=== PATIENT | male | born 1950 | race Caucasian/White ===

== ENCOUNTER 2016-08-05 10:51 | Day surgery (SDC) | payer OTHER ==
[2016-08-05] VITALS (15 sets, daily range): BP systolic 92–175; BP diastolic 55–83; PULSE 66–94; RESP 11–20; TEMP 97.1–98.3; O2SAT 95–100; Ht 177.8 cm; Wt 81.1 kg
[~2016-08-05] VITALS: Ht 177.8 cm; Wt 81.1 kg
[~2016-08-05 10:51] MED LIST: LEVOFLOXACIN 500 mg IVPB 500 MG in D5W 100 ML IV ONE; LIDOCAINE 1% (10mg/ml) 2ml SDV INJ ONE; LR 1,000 ML IV SCH
--- OUTSIDE RECORDS SUMMARY | 2016-08-05 10:56 | XMS REPORT | Summary of Care ---
Author Author Michael Albarado M.D. Organization Unknown Address [address], [place] [id number] Phone Unavailable Care Team Providers Care Power Nut Runner Operator Name Role Phone Michael Albarado PP Unavailable Unavailable Unavailable Functional Status Functional Status Health Issues* Name Dates Details Functional status health issues are not documented Status: Cognitive Status Health Issues* Name Dates Details Cognitive status health issues are not documented Status: Problems Name Dates Details Acute sinusitis (461.9, J01.90) Status: Active Encounter for general health examination (V70.0, Z00.00) Status: Active Routine history and physical examination of adult (V70.0, Z00.00) Status: Active Hyperlipidemia (272.4, E78.5) Status: Active Sore throat (462, J02.9) Status: Active Corneal foreign body (930.0, T15.00XA) Status: Active Cornea abrasion (918.1, S05.00XA) Status: Active Corneal erosion, 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, 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 Hemorrhoids (455.6, K64.9) Status: Active SOB (shortness of breath) (786.05, R06.02) Status: Active Sinus tachycardia (427.89, I47.1) Status: Active Medications Name Dates Details Medication not documented Allergies and Adverse Reactions Name Dates Details No Known Drug Allergies Status: Active Procedures Procedure Dates Details History of Complete Colonoscopy Completed:12-Jul-2009 ECG/ EKG Ordered:19-May-2014 Immunization Name Dates Details Tdap (Adacel) Lot #: [id number] Administered on:28-Apr-2013 Prevnar 13 Intramuscular Suspension Administered on:28-Apr-2013 Family History Unknown Family Member* Name Dates Details Family history of Mother At Age ____ Comments: Family History Status: Active Family history of Father At Age ____ Comments: Family History Status: Active Father* Name Dates Details Family history of Gastric Cancer (V16.0) Status: Active Social History Name Dates Details Smoking Status* Never smoker Vital Signs Date Test Result Details 19-May-2014 14:17 BP Systolic 160 mm[Hg] Status: BP Diastolic 68 mm[Hg] Status: Heart Rate 116 /min Status: Weight 187 lb Status: O2 SAT 99 % Status: Body Mass Index Calculated 26.83 kg/m2 Status: Body Surface Area Calculated 2.03 m2 Status: Results Date Description Value Details 18-May-2014 11:20 CBC w/ Auto Diff 7150 WBC 7.8 K/uL (Better) Range: 4.5-11.0 RBC 5.31 mil/uL (Better) Range: 4.20-5.40 HGB 15.9 g/dL (Better) Range: 14.0-18.0 HCT 46.0 % (Better) Range: 42.0-53.0 MCV 86.5 fL (Better) Range: 80.0-99.0 MCH 29.9 pg (Better) Range: 27.3-32.5 MCHC 34.5 % (Better) Range: 32.0-36.0 RDW 12.7 % (Better) Range: 11.6-14.8 PLATELETS 163 K/uL (Better) Range: 150-400 MPV 9.6 fL (Better) Range: 6.0-11.0 %NEUTRO 62.2 % (Better) Range: 37.0-80.0 %LYMPHS 24.5 % (Better) Range: 13.0-50.0 %MONO 7.2 % (Better) Range: 0.0-12.0 %EOS 1.7 % (Better) Range: 0.0-7.0 %BASO 0.6 % (Better) Range: 0.0-2.5 %BRISSA 3.9 % (Better) Range: 0.0-5.0 NEUTRO 4.8 K/uL (Better) Range: 2.0-6.9 LYMPHS 1.9 K/uL (Better) Range: 0.6-3.4 MONOS 0.6 K/uL (Better) Range: 0.0-0.9 EOS 0.1 K/uL (Better) Range: 0.0-0.7 BASO 0.0 K/uL (Better) Range: 0.0-0.2 11:31 Comprehensive Metabolic Panel 1212 SODIUM 139 mmol/L (Better) Range: 133-144 POTASSIUM 4.1 mmol/L (Better) Range: 3.5-5.1 CHLORIDE 105 mmol/L (Better) Range: 98-110 CARBON DIOXIDE 26.5 mmol/L (Better) Range: 23.0-33.0 ANION GAP 8 mmol/L (Better) Range: 6-16 BUN 14 mg/dL (Better) Range: 7-18 CREATININE, SERUM 0.86 mg/dL (Better) Range: 0.43-1.13 BUN:CREATININE RATIO 16 (Better) EST GFR, >60 ml/min (Better) Range: >60 EST GFR, NON-AFR [place] >60 ml/min (Better) Range: >60 Comments: EST GFR is reported in ml/min per 1.73 m2 of body surface area. For -Togolese, please multiple result by 1.2.----- GLUCOSE 102 mg/dL (Above high threshold) Range: 70-100 ALK PHOSPHATASE 79 U/L (Better) Range: 46-116 Comments: Please Note: New Reference Range effective 2013.----- TOTAL BILIRUBIN 0.70 mg/dL (Better) Range: 0.20-1.00 AST 23 U/L (Better) Range: 8-35 ALT 40 U/L (Better) Range: 12-78 ALBUMIN 4.0 g/dL (Better) Range: 3.4-5.0 TOTAL PROTEIN 7.4 g/dL (Better) Range: 6.4-8.2 A/G RATIO 1.2 units (Better) Range: 1.0-1.8 CALCIUM 9.2 mg/dL (Better) Range: 8.5-10.1 11:35 PSA ( PROSTATE SPECIFIC ANTIGEN) 3100 PROSTATE SPECIFIC ANTIGEN 1.300 ng/mL (Better) Range: 0.000-4.000 Plan of Care Planned Observations* Name Dates Details Planned Goals not documented Goal Instructions * Instructions not documented Encounters Appointment; Michael Albarado Encounter Diagnosis: Problem not documented On 19-May-2014 14:15 Appointment; Carlos Hart Encounter Diagnosis: Problem not documented On 27-Jun-2013 13:00 Appointment; Carlos Hart Encounter Diagnosis: Problem not documented On 20-Jun-2013 11:15 Appointment; Eric Benitez Encounter Diagnosis: Problem not documented On 20-Jun-2013 07:45 Appointment; Pancho Carson Encounter Diagnosis: Problem not documented On 03-Jun-2013 09:30 Appointment; Michael Albarado Encounter Diagnosis: Problem not documented On 28-Apr-2013 10:45 Appointment; Michael Albarado Encounter Diagnosis: Problem not documented On 28-Apr-2013 09:00 Appointment; Michael Albarado Encounter Diagnosis: Problem not documented On 20-Jul-2012 10:15 Appointment; Milton Dickinson Encounter Diagnosis: Problem not documented On 15-Jul-2012 08:00
--- OUTSIDE RECORDS SUMMARY | 2016-08-05 10:56 | XMS REPORT | Summary of Care ---
Author Author Edwin Richards M.D. Unknown Address [address], [place] [id number] Phone Unavailable Care Team Providers Care Blanking Press Operator Name Role Phone Michael Albarado JONH Unavailable Unavailable Unavailable Functional Status Functional Status Health Issues* Name Dates Details Functional status health issues are not documented Status: Cognitive Status Health Issues* Name Dates Details Cognitive status health issues are not documented Status: Problems Name Dates Details Routine history and physical examination of adult (V70.0, Z00.00) Status: Active Hyperlipidemia (272.4, E78.5) Status: Active Microscopic hematuria (599.72, R31.2) Status: Active 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, 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: Active Medications Name Dates Details Medication not documented Allergies and Adverse Reactions Name Dates Details No Known Drug Allergies Status: Active Past Medical History Name Dates Details History of acute sinusitis (V12.69, Z87.09) Status: Resolved History of corneal abrasion (V15.59, Z87.828) Status: Resolved History of Corneal erosion, 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, H16.001) Status: Resolved History of Corneal foreign body (930.0, T15.00XA) Status: Resolved History of Encounter for general health examination (V70.0, Z00.00) Status: Resolved History of hemorrhoids (V13.89, Z87.19) Status: Resolved History of shortness of breath (V13.89, Z87.898) Status: Resolved History of sinus tachycardia (V12.59, Z86.79) Status: Resolved History of Sore throat (462, J02.9) Status: Resolved Procedures Procedure Dates Details History of Complete Colonoscopy Completed:12-Jul-2009 CBC w/ Auto Diff 7150 Ordered:29-May-2015 Comprehensive Metabolic Panel 1212 Ordered:29-May-2015 PSA ( PROSTATE SPECIFIC ANTIGEN) 3100 Ordered:29-May-2015 THYROID STIM. HORMONE 3602 Ordered:29-May-2015 LIPID PROFILE 1184 Ordered:29-May-2015 Immunization Name Dates Details Tdap (Adacel) Lot #: [id number] Administered on:28-Apr-2013 Prevnar 13 Intramuscular Suspension Administered on:28-Apr-2013 Zoster (Zostavax) Lot #: [id number] Administered on:05-Jun-2014 Family History Unknown Family Member* Name Dates Details Family history of Mother At Age ____ Comments: Family History Status: Active Family history of Father At Age ____ Comments: Family History Status: Active Father* Name Dates Details Family history of Gastric Cancer (V16.0) Status: Active Social History Name Dates Details Smoking Status* Never smoker Vital Signs Date Test Result Details No Known Vitals to report Results Date Description Value Details Results not documented Plan of Care Planned Observations* Name Dates Details Planned Goals not documented Goal Planned Encounters* Appointment; Provider: Michael Albarado On 06-Jun-2015 16:00 Instructions * Instructions not documented Encounters Appointment; Edwin Richards Encounter Diagnosis: Problem not documented On 17-Apr-2015 09:30 Appointment; Michael Albarado Encounter Diagnosis: Problem not documented On 05-Jun-2014 09:00 Appointment; Omid Malhotra Encounter Diagnosis: Problem not documented On 31-May-2014 12:30 Appointment; Michael Albarado Encounter Diagnosis: Problem not documented On 19-May-2014 14:15 Appointment; Carlos Hart Encounter Diagnosis: Problem not documented On 27-Jun-2013 13:00 Appointment; Carlos Hart Encounter Diagnosis: Problem not documented On 20-Jun-2013 11:15 Appointment; Eric Benitez Encounter Diagnosis: Problem not documented On 20-Jun-2013 07:45 Appointment; Pancho Carson Encounter Diagnosis: Problem not documented On 03-Jun-2013 09:30
--- OUTSIDE RECORDS SUMMARY | 2016-08-05 10:56 | XMS REPORT | Summary of Care ---
Author Author Michael Albarado M.D. 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 Hemorrhoids (455.6, K64.9) Status: Active Hyperlipidemia (272.4, E78.5) Status: Active Shortness of breath (786.05, R06.02) Status: Active Sinus tachycardia (427.89, I47.1) Status: Active Medications Name Dates Details Medication not documented Allergies and Adverse Reactions Name Dates Details No Known Drug Allergies Status: Active Procedures Procedure Dates Details History of Complete Colonoscopy Completed:12-Jul-2009 Procedures not documented Immunization Name Dates Details Tdap (Adacel) Lot #: [id number] Administered on:28-Apr-2013 Prevnar 13 Intramuscular Suspension Administered on:28-Apr-2013 Zoster (Zostavax) Lot #: [id number] Administered on:05-Jun-2014 Family History Unknown Family Member* Name Dates Details Family history of Mother At Age ____ Comments: Family History Status: Active Family history of Father At Age ____ Comments: Family History Status: Active Father* Name Dates Details Family history of Gastric Cancer (V16.0) Status: Active Social History Name Dates Details Smoking Status* Never smoker Vital Signs Date Test Result Details 05-Jun-2014 08:57 BP Systolic 140 mm[Hg] Status: BP Diastolic 80 mm[Hg] Status: Heart Rate 81 /min Status: O2 SAT 100 % Status: 31-May-2014 12:40 BP Systolic 142 mm[Hg] Status: BP Diastolic 78 mm[Hg] Status: 19-May-2014 14:17 BP Systolic 160 mm[Hg] Status: [...] ml/min (Better) Range: >60 EST GFR, NON-AFR CHAD[place] >60 ml/min (Better) Range: >60 Comments: EST [...] SPECIFIC ANTIGEN 1.300 ng/mL (Better) Range: 0.000-4.000 19-May-2014 14:49 ECG/ EKG CP - Electro CardioGram ECG/ EKG Cardiology Read (Better) Plan of Care Planned Observations* Name Dates [...]
--- OUTSIDE RECORDS SUMMARY | 2016-08-05 10:57 | XMS REPORT ---
Author Author GENERATED, SYSTEM Organization Unknown Address Unknown Phone Unavailable Care Team Providers Care Head Well Puller Name Role Phone MD SURESH, COURT PP [phone] Reason For Visit Chief Complaint ABD PAIN Social History Functional Status Vital Signs Results Chemistry from 08/01/2016 7:44 PMSODIUM 137 MMOL/L (136-145 MMOL/L) POTASSIUM 3.8 MMOL/L (3.5-5.1 MMOL/L) CHLORIDE 103 MMOL/L (98-107 MMOL/L) TCO2 23.9 MMOL/L (21.0-32.0 MMOL/L) *ANION GAP 10.1 MMOL/L (8.0-16.0 MMOL/L) BUN 21 MG/DL H (7-18 MG/DL) CREATININE 1.07 MG/DL (0.70-1.30 MG/DL) *BUN/CREATININE RATIO 19.6 H (9.1-17.0 ) GLUCOSE 163 MG/DL H (65-99 MG/DL) *GFR EST NON AFR KENYAN 72 ML/MIN (Reference Range: not available) *GFR EST AFR AMER 83 ML/MIN (Reference Range: not available) CALCIUM 8.8 MG/DL (8.5-10.1 MG/DL) BILIRUBIN TOTAL 0.40 MG/DL (0.20-1.00 MG/DL) TOTAL PROTEIN 7.1 GM/DL (6.4-8.2 GM/DL) ALBUMIN 3.9 GM/DL (3.4-5.0 GM/DL) *GLOBULIN 3.2 GM/DL (2.3-3.5 GM/DL) *A/G RATIO 1.2 MG/DL L (1.5-2.2 MG/DL) ALK PHOS 82 U/L (46-116 U/L) ALT (SGPT) 28 U/L (14-59 U/L) AST (SGOT) 25 U/L (15-37 U/L) Hematology from 08/01/2016 7:44 PMWBC 10.8 X10e3/UL (3.6-11.2 X10e3/UL) RBC 5.08 X10e6/UL (4.06-5.63 X10e6/UL) HEMOGLOBIN 14.9 G/DL (12.5-16.3 G/DL) HEMATOCRIT 43.1 % (36.7-47.1 %) *MCV 84.9 FL (80.0-100.0 FL) *MCH 29.3 PG (27.0-33.0 PG) *MCHC 34.5 G/DL (32.0-36.0 G/DL) *RDW 13.0 % (12.3-17.0 %) *RDWSD 38.9 (37.1-47.8 ) PLATELET 159 X10e3/UL (159-386 X10e3/UL) *MPV 9.5 FL (7.4-10.4 FL) AUTOMATED DIFF PERFORMED (Reference Range: not available) SEGS 70.9 % (Reference Range: not available) *LYMPHOCYTES 18.4 % (Reference Range: not available) *MONOCYTES 8.9 % (Reference Range: not available) *EOSINOPHILS 1.3 % (Reference Range: not available) *BASOPHILS 0.5 % (Reference Range: not available) *ABSOLUTE NEUTROPHILS 7.70 X10e3/UL (1.80-7.80 X10e3/UL) *ABSOLUTE LYMPHOCYTES 2.00 X10e3/UL (1.00-3.00 X10e3/UL) *ABSOLUTE MONOCYTES 1.00 X10e3/UL (0.30-1.00 X10e3/UL) *ABSOLUTE EOSINOPHILS 0.10 X10e3/UL (0.00-0.50 X10e3/UL) *ABSOLUTE BASOPHILS 0.10 X10e3/UL (0.00-0.20 X10e3/UL) Urinalysis from 08/01/2016 7:44 PM*URINE COLOR YELLOW (STRAW/YELL/DK YELL ) *URINE APPEARANCE CLEAR (CLEAR ) URINE PH 6.5 (5.0-8.0 ) URINE SPECIFIC GRAVITY 1.020 (<=1.005->=1.030 ) *URINE GLUCOSE NEGATIVE MG/DL (NEGATIVE MG/DL) *URINE BILIRUBIN NEGATIVE (NEGATIVE ) *URINE KETONES TRACE MG/DL A (NEGATIVE MG/DL) *URINE BLOOD LARGE A (NEGATIVE ) *URINE PROTEIN TRACE MG/DL A (NEGATIVE MG/DL) *URINE UROBILINOGEN 0.2 EU/DL (0.2-1.0 EU/DL) *URINE NITRITES NEGATIVE (NEGATIVE ) *URINE LEUKOCYTES NEGATIVE (NEGATIVE ) *MICROSCOPIC EXAM PERFORMED PERFORMED (Reference Range: not available) *WBC URINE 1-5 /HPF (0-5 /HPF) *RBC URINE 25-50 /HPF A (0-1 /HPF) *SQUAMOUS EP. CELLS MANY /LPF A (NEG-FEW /LPF) *MUCOUS THREADS MANY /LPF A (NEGATIVE /LPF) *BACTERIA FEW /HPF A (NEGATIVE /HPF) Coagulation from 08/01/2016 7:44 PM*PROTHROMBIN TIME 10.7 SECONDS (9.4-11.5 SECONDS) *INR 1.0 (0.9-1.1 ) Problems Encounter Diagnosis No relevant problems exist. Encounters Encounter Diagnosis No relevant problems exist. Plan of Care Procedures No relevant procedures performed. Immunizations No immunizations administered or ordered. Hospital Course Hospital Discharge Instructions Allergies, Adverse Reactions, Alerts This section is airline security representative of the current allergy information, at the time of the CCD generation. In the case of regeneration of the CCD, the allergy information may not reflect the state of known allergies at the time of the CCD' s subject visit. * Latex Allergy has not been assessed. * IV Contrast Allergy has not been assessed. Medication Medication reconciliation has not been performed.
--- OUTSIDE RECORDS SUMMARY | 2016-08-05 10:57 | XMS REPORT | Summary of Care ---
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 Quantity: 1 Patricia Ruggiero APRN * Start 19-Jun-2016 Active 6 Tablet Disp Pack Allergies and Adverse Reactions Name Dates Details No Known Drug Allergies (Allergy) Status: Active Past Medical History Name Dates [...] Procedure Dates Details History of Complete Colonoscopy Completed: 12-Jul-2009 Cardiology Precert (within facility) Ordered: 17-Jun-2016 LIPID PROFILE 1184 Ordered: 17-Jun-2016 Immunization Name Dates Details Tdap (Adacel) Lot #: [id number] on: 28-Apr-2013 Prevnar 13 Intramuscular Suspension on: 28-Apr-2013 Zoster (Zostavax) Lot #: [id number] on: 05-Jun-2014 Fluzone High-Dose 0.5 ML Intramuscular Suspension Prefilled Syringe on: 28-Jan-2016 Family History Name Dates Details Family history of Mother At Age ____ Comments: Family History Status: Active Family history of Father At Age ____ Comments: Family History Status: Active Name Dates Details Family history of Gastric Cancer (V16.0) Status: Active Social History Name Dates Details - Status: Name Dates Details Never smoker Vital Signs Date Test Result Details 19-Jun-2016 15:36 BP Systolic 120 mm[Hg] Status: Comments: Location: ; Position: BP Diastolic 70 mm[Hg] Status: Comments: Location: ; Position: Heart Rate 118 /min Status: Comments: Location: ; Weight 184.6 lb Status: Physical Findings 98 Status: Comments: O2 Saturation Body Mass Index Calculated 26.49 kg/m2 Status: Body Surface Area Calculated 2.02 m2 Status: 17-Jun-2016 13:50 BP Systolic 142 mm[Hg] Status: Comments: Location: ; Position: BP Diastolic 80 mm[Hg] Status: Comments: Location: ; Position: Heart Rate 93 /min Status: Comments: Location: ; Weight 185.6 lb Status: Physical Findings 99 Status: Comments: O2 Saturation Body Mass Index Calculated 26.63 kg/m2 Status: Body Surface Area Calculated 2.02 m2 Status: Results Date Description Value Details 17-Jun-2016 08:04 CBC w/ Auto Diff 7150 Comments: Items were attached to this order: Extra Tube Fastin hours WBC 6.1 K/uL Range: 4.5-11.0 RBC 5.55 mil/uL (Above high threshold) Range: 4.20-5.40 HGB 16.7 g/dL Range: 14.0-18.0 HCT 49.7 % Range: 42.0-53.0 MCV 89.6 fL Range: 80.0-99.0 MCH 30.1 pg Range: 27.3-32.5 MCHC 33.6 % Range: 32.0-36.0 RDW 14.2 % Range: 11.6-14.8 PLATELETS 206 K/uL Range: 150-400 MPV 8.6 fL Range: 6.0-11.0 %NEUTRO 59.1 % Range: 37.0-80.0 %LYMPHS 28.2 % Range: 13.0-50.0 %MONO 6.6 % Range: 0.0-12.0 %EOS 2.6 % Range: 0.0-7.0 %BASO 0.7 % Range: 0.0-2.5 %BRISSA 2.8 % Range: 0.0-5.0 NEUTRO 3.6 K/uL Range: 2.0-6.9 LYMPHS 1.7 K/uL Range: 0.6-3.4 MONOS 0.4 K/uL Range: 0.0-0.9 EOS 0.2 K/uL Range: 0.0-0.7 BASO 0.0 K/uL Range: 0.0-0.2 08:20 Urinalysis, Reflex to Microscopic or Culture PRN [id number] Comments: Fastin hours pH 7.0 Range: 5.0-7.5 SP GRAVITY <=1.005 (Abnormal) Range: 1.010-1.030 APPEARANCE CLEAR Range: Clear COLOR YELLOW Range: Straw-Yellow PROTEIN NEGATIVE mg/dL Range: Negative-Trace GLUCOSE NEGATIVE mg/dL Range: Negative KETONE NEGATIVE mg/dL Range: Negative BILIRUB NEGATIVE Range: Negative BLOOD NEGATIVE Range: Negative UROBIL 0.2 EU/dL Range: 0.2-1.0 NITRITE NEGATIVE Range: Negative LEUK NEGATIVE Range: Negative 08:32 Comprehensive Metabolic Panel 1212 Comments: Items were attached to this order: Extra Tube Fastin hours SODIUM 135 mmol/L Range: 133-144 POTASSIUM 3.8 mmol/L Range: 3.5-5.1 CHLORIDE 100 mmol/L Range: 98-110 CARBON DIOXIDE 28.1 mmol/L Range: 23.0-33.0 ANION GAP 7 mmol/L Range: 6-16 BUN 17 mg/dL Range: 7-18 CREATININE, SERUM 1.12 mg/dL Range: 0.70-1.30 BUN:CREATININE RATIO 15 EST GFR, >60 ml/min Range: >60 EST GFR, NON-AFR [place] >60 ml/min Range: >60 Comments: EST GFR is reported in ml/min per 1.73 m2 of body surface area. ----- GLUCOSE 108 mg/dL (Above high threshold) Range: 70-100 ALK PHOSPHATASE 80 U/L Range: 46-116 TOTAL BILIRUBIN 0.80 mg/dL Range: 0.20-1.00 AST 24 U/L Range: 8-35 ALT 29 U/L Range: 16-63 ALBUMIN 4.0 g/dL Range: 3.4-5.0 TOTAL PROTEIN 7.5 g/dL Range: 6.4-8.2 A/G RATIO 1.1 units Range: 1.0-1.8 CALCIUM 8.8 mg/dL Range: 8.5-10.1 08:31 LIPID PROFILE 1184 Comments: Items were attached to this order: Extra Tube Fastin hours CHOLESTEROL 229 mg/dL (Above high threshold) Range: <200 TRIGLYCERIDES 91 mg/dL Range: 30-200 HDL Cholesterol 53 mg/dL Range: >39 NON HDL CHOLESTEROL 176 CARDIAC RSK FACTOR 4.3 units (Below low threshold) Range: 4.4-5.0 LDL - CALCULATED 158 mg/dL (Above high threshold) Range: 0-130 Plan of Care Name Dates Details Planned Observations Planned Goals not documented Planned Encounters Appointment; Provider: Michael Albarado M.D. On 22-Dec-2016 13:15 Appointment; Provider: Patricia Ruggiero A.P.R.N. On 23-Jun-2016 13:00 Interventions Provided Medication Changes* Zithromax Z-Eduardo 250 MG Oral Tablet - Start Instructions Name Dates Details Instructions not documented Encounters Appointment; Michael Albarado M.D. Encounter Diagnosis: Problem not documented On 17-Jun-2016 14:00 Appointment; Shar Hinojosa M.D. Encounter Diagnosis: Problem not documented On 06-Nov-2015 15:00 Appointment; Michael Albarado M.D. Encounter Diagnosis: Problem not documented On 06-Jun-2015 16:00 Appointment; Edwin Ricahrds M.D. Encounter Diagnosis: Problem not documented On 17-Apr-2015 09:30
--- OUTSIDE RECORDS SUMMARY | 2016-08-05 10:57 | XMS REPORT ---
Author Author GENERATED, SYSTEM Organization Unknown Address Unknown Phone Unavailable Care Team Providers Care Field Crop Technical Officer Name Role Phone MD SURESH, COURT PP [phone] Reason For Visit Chief Complaint CTA CHEST DX: SOB SINUS TACHYCARDIA,ULTRASOUND SCROTUM Social History Functional Status Vital Signs Results Problems Encounter Diagnosis No relevant problems exist. Encounters Encounter Diagnosis No relevant problems exist. Plan of Care Procedures No relevant procedures performed. Immunizations No immunizations administered or ordered. Hospital Course Hospital Discharge Instructions Allergies, Adverse Reactions, Alerts * Latex Allergy has not been assessed. * IV Contrast Allergy has not been assessed. Medication Medication reconciliation has not been performed.
--- OUTSIDE RECORDS SUMMARY | 2016-08-05 10:57 | XMS REPORT | Summary of Care ---
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: Active Microscopic hematuria (599.72, R31.29) Status: Active Lentigo (709.09, L81.4) Status: Active Benign neoplasm of skin of scalp (216.4, D23.4) Status: Active Benign neoplasm of skin of trunk (216.5, D23.5) Status: Active Hyperlipidemia (272.4, E78.5) Status: Active Dizziness and giddiness (780.4, R42) Status: Active Wellness examination (V70.0, Z00.00) Status: Active Medications Name Dates Details Medication [...] Name Dates Details Tdap (Adacel) Lot #: [id number] on: 28-Apr-2013 Prevnar 13 Intramuscular Suspension on: 28-Apr-2013 Zoster (Zostavax) Lot #: [id number] on: 05-Jun-2014 Fluzone High-Dose 0.5 ML Intramuscular [...] smoker Vital Signs Date Test Result Details 17-Jun-2016 13:50 BP Systolic 142 mm[Hg] Status: [...] >60 ml/min Range: >60 EST GFR, NON-AFR AFGHAN >60 ml/min Range: >60 Comments: EST GFR [...] Provider: Michael Albarado M.D. On 22-Dec-2016 13:15 Instructions Name Dates Details Instructions not documented Encounters Appointment; Michael Albarado M.D. Encounter Diagnosis: Problem not documented On 17-Jun-2016 14:00 Appointment; Shar Hinojosa M.D. Encounter Diagnosis: Problem not documented On 06-Nov-2015 15:00 Appointment; Michael Albarado M.D. Encounter Diagnosis: Problem not documented On 06-Jun-2015 16:00 Appointment; Edwin Richards M.D. Encounter Diagnosis: Problem not documented On 17-Apr-2015 09:30
--- OUTSIDE RECORDS SUMMARY | 2016-08-05 10:57 | XMS REPORT | Summary of Care ---
Author Author Michael Albarado M.D. 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, 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: Active Microscopic hematuria (599.72, R31.2) Status: Active Medications Name Dates Details Medication [...] Dates Details History of Complete Colonoscopy Completed:12-Jul-2009 Urinalysis, Reflex to Microscopic or Culture PRN 8005 Ordered:06-Jun-2015 Immunization Name Dates Details Tdap (Adacel) Lot #: [id number] Administered on:28-Apr-2013 Prevnar 13 Intramuscular Suspension Administered on:28-Apr-2013 Zoster (Zostavax) Lot #: [id number] Administered on:05-Jun-2014 Family History Unknown Family Member* Name Dates Details Family history of Mother At Age ____ Comments: Family History Status: Active Family history of Father At Age ____ Comments: Family History Status: Active Father* Name Dates Details Family history of Gastric Cancer (V16.0) Status: Active Social History Name Dates Details Smoking Status* Never smoker Vital Signs Date Test Result Details 06-Jun-2015 15:45 BP Systolic 132 mm[Hg] Status: BP Diastolic 78 mm[Hg] Status: Heart Rate 96 /min Status: Weight 182 lb Status: O2 SAT 97 % Status: Body Mass Index Calculated 26.11 kg/m2 Status: Body Surface Area Calculated 2.01 m2 Status: Results Date Description Value Details 05-Jun-2015 07:58 CBC w/ Auto Diff 7150 Comments: Fastin hours WBC 8.4 K/uL (Better) Range: 4.5-11.0 RBC 5.33 mil/uL (Better) Range: 4.20-5.40 HGB 15.7 g/dL (Better) Range: 14.0-18.0 HCT 47.0 % (Better) Range: 42.0-53.0 MCV 88.1 fL (Better) Range: 80.0-99.0 MCH 29.5 pg (Better) Range: 27.3-32.5 MCHC 33.5 % (Better) Range: 32.0-36.0 RDW 12.7 % (Better) Range: 11.6-14.8 PLATELETS 177 K/uL (Better) Range: 150-400 MPV 9.2 fL (Better) Range: 6.0-11.0 %NEUTRO 63.1 % (Better) Range: 37.0-80.0 %LYMPHS 25.4 % (Better) Range: 13.0-50.0 %MONO 6.6 % (Better) Range: 0.0-12.0 %EOS 2.1 % (Better) Range: 0.0-7.0 %BASO 0.6 % (Better) Range: 0.0-2.5 %BRISSA 2.3 % (Better) Range: 0.0-5.0 NEUTRO 5.3 K/uL (Better) Range: 2.0-6.9 LYMPHS 2.1 K/uL (Better) Range: 0.6-3.4 MONOS 0.6 K/uL (Better) Range: 0.0-0.9 EOS 0.2 K/uL (Better) Range: 0.0-0.7 BASO 0.1 K/uL (Better) Range: 0.0-0.2 08:31 LIPID PROFILE 1184 Comments: Fastin hours CHOLESTEROL 226 mg/dL (Above high threshold) Range: <200 TRIGLYCERIDES 92 mg/dL (Better) Range: 30-200 HDL Cholesterol 53 mg/dL (Better) Range: >39 NON HDL CHOLESTEROL 173 (Better) CARDIAC RSK FACTOR 4.3 units (Below low threshold) Range: 4.4-5.0 LDL - CALCULATED 155 mg/dL (Above high threshold) Range: 0-130 08:34 PSA ( PROSTATE SPECIFIC ANTIGEN) 3100 Comments: Fastin hours PROSTATE SPECIFIC ANTIGEN 1.560 ng/mL (Better) Range: 0.000-4.000 08:34 THYROID STIM. HORMONE 3602 Comments: Fastin hours THYROID STIM. HORMONE 1.080 uIU/mL (Better) Range: 0.550-4.780 Comments: No established reference ranges for infants and children <2 years of age----- 08:36 Comprehensive Metabolic Panel 1212 Comments: Fastin hours SODIUM 136 mmol/L (Better) Range: 133-144 POTASSIUM 3.9 mmol/L (Better) Range: 3.5-5.1 CHLORIDE 101 mmol/L (Better) Range: 98-110 CARBON DIOXIDE 26.1 mmol/L (Better) Range: 23.0-33.0 ANION GAP 9 mmol/L (Better) Range: 6-16 BUN 17 mg/dL (Better) Range: 7-18 CREATININE, SERUM 1.05 mg/dL (Better) Range: 0.70-1.30 Comments: Please note new reference ranges effective 2014.----- BUN:CREATININE RATIO 16 (Better) EST GFR, >60 ml/min (Better) Range: >60 EST GFR, NON-AFR [place] >60 ml/min (Better) Range: >60 Comments: EST GFR is reported in ml/min per 1.73 m2 of body surface area. For -[place], please multiple result by 1.2.----- GLUCOSE 113 mg/dL (Above high threshold) Range: 70-100 ALK PHOSPHATASE 84 U/L (Better) Range: 46-116 TOTAL BILIRUBIN 0.50 mg/dL (Better) Range: 0.20-1.00 AST 17 U/L (Better) Range: 8-35 ALT 29 U/L (Better) Range: 16-63 Comments: Please note new reference ranges. Effective 06/15/2014.----- ALBUMIN 3.7 g/dL (Better) Range: 3.4-5.0 TOTAL PROTEIN 7.1 g/dL (Better) Range: 6.4-8.2 A/G RATIO 1.1 units (Better) Range: 1.0-1.8 CALCIUM 9.1 mg/dL (Better) Range: 8.5-10.1 Plan of Care Planned Observations* Name Dates Details Planned Goals not documented Goal Planned Encounters* Appointment; Provider: Michael Albarado On 17-Jun-2016 16:00 Instructions * Instructions not documented Encounters Appointment; Michael Albarado Encounter Diagnosis: Problem not documented On 06-Jun-2015 16:00 Appointment; Edwin Richards Encounter Diagnosis: Problem not [...]
--- OUTSIDE RECORDS SUMMARY | 2016-08-05 10:57 | XMS REPORT | Summary of Care ---
Author Author Devante MORAN, Shelbi Organization Unknown Address [address], [place] [phone] Phone Unavailable Care Team Providers Care Hospital Technician Name Role Phone Wilfred Mejia M.D. 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.4) [...] Active Cervical lymphadenopathy (785.6, R59.0) Status: Active Calculus of proximal left ureter (592.1, N20.1) Status: Active Nephrolithiasis (592.0, N20.0) Status: Active Medications Name Dates Details No Reported Medications Active Allergies and Adverse Reactions Name Dates Details [...] Details History of Complete Colonoscopy Completed: 12-Jul-2009 Urology Precert (outside facility) Ordered: 04-Aug-2016 Cardiology Precert (within facility) Ordered: 17-Jun-2016 LIPID PROFILE 1184 Ordered: 17-Jun-2016 Immunization Name Dates Details Prevnar 13 Intramuscular Suspension on: 28-Apr-2013 Tdap (Adacel) Lot #: [id number] on: 28-Apr-2013 Zoster (Zostavax) Lot #: [id number] on: 05-Jun-2014 Fluzone High-Dose 0.5 ML Intramuscular [...] smoker Vital Signs Date Test Result Details 04-Aug-2016 14:47 BP Systolic 166 mm[Hg] Status: Comments: Location: ; Position: BP Diastolic 94 mm[Hg] Status: Comments: Location: ; Position: Heart Rate 82 /min Status: Comments: Location: ; Results Date Description Value Details Results not documented Plan of Care Name Dates Details Planned Observations Planned Goals not documented Planned Encounters Appointment; Provider: Michael Albarado M.D. On 22-Dec-2016 13:15 Appointment; Provider: Wilfred Mejia M.D. On 05-Aug-2016 11:15 Instructions Name Dates Details Instructions not documented Encounters Appointment; Patricia Ruggiero A.P.R.N. Encounter Diagnosis: Problem not documented On 19-Jun-2016 15:45 Appointment; Michael Albarado M.D. Encounter Diagnosis: Problem not documented On 17-Jun-2016 14:00 Appointment; Shar Hinojosa M.D. Encounter Diagnosis: Problem not documented On 06-Nov-2015 15:00 Appointment; Michael Albarado M.D. Encounter Diagnosis: Problem not documented On 06-Jun-2015 16:00 Appointment; Edwin Richards M.D. Encounter Diagnosis: Problem not documented On 17-Apr-2015 09:30
--- OUTSIDE RECORDS SUMMARY | 2016-08-05 10:57 | XMS REPORT | Summary of Care ---
Author Author Michael Albarado M.D. 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
--- OUTSIDE RECORDS SUMMARY | 2016-08-05 10:57 | XMS REPORT | Summary of Care ---
Author Author Michael Albarado M.D. 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 For -[place], please multiple result by 1.2.----- GLUCOSE 113 [...]
--- OUTSIDE RECORDS SUMMARY | 2016-08-05 10:57 | XMS REPORT | Summary of Care ---
Author Author Edwin Richards M.D. 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: Active Medications Name Dates Details Medication not documented Allergies and Adverse Reactions Name Dates Details No Known Drug Allergies Status: Active Procedures Procedure Dates Details History of Complete Colonoscopy Completed:12-Jul-2009 Procedures not documented Immunization Name Dates Details Tdap (Adacel) Lot #: [id number] Administered on:28-Apr-2013 Prevnar 13 Intramuscular Suspension Administered on:28-Apr-2013 Zoster (Zostavax) Lot #: [id number] Administered on:05-Jun-2014 Family History Unknown Family Member* [...] to report Results Date Description Value Details 17-Apr-2015 09:02 Urinalysis, Chemistries Only ([facility] only) 8017 pH 6.5 (Better) Range: 5.0-7.5 SP GRAVITY 1.025 (Better) Range: 1.010-1.030 APPEARANCE Clear (Better) Range: Clear COLOR Yellow (Better) Range: Straw-Yellow PROTEIN Negative mg/dL (Better) Range: Negative-Trace GLUCOSE Negative mg/dL (Better) Range: Negative KETONES Negative mg/dL (Better) Range: Negative BILIRUBIN Negative (Better) Range: Negative BLOOD +/- (Abnormal) Range: Negative UROBIL 0.2 EU/dL (Better) Range: 0.2-1.0 NITRITE Negative (Better) Range: Negative LEUKOCYTES Negative (Better) Range: Negative Plan of Care Planned Observations* Name Dates [...]
--- OUTSIDE RECORDS SUMMARY | 2016-08-05 10:57 | XMS REPORT | Summary of Care ---
Author Author [facility] Organization [facility] Address [address] [place] [address] Phone Care Team Providers Care Roof Cement And Paint Maker Name Role Phone Jeremy Olivares, User Unavailable Unavailable Patricia Ruggiero APRN Unavailable Unavailable Michael Albarado Unavailable Unavailable Unavailable Unavailable Functional Status Name Dates Details Functional status health issues are not documented Status: Name Dates Details Cognitive status health issues are not documented Status: Problems Name Dates Details Routine history and physical examination of adult (V70.0, Z00.00) Status: Active 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
--- OUTSIDE RECORDS SUMMARY | 2016-08-05 10:58 | XMS REPORT | Summary of Care ---
Author Author Edwin Richards M.D. 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, [...] Reflex to Microscopic or Culture PRN 8005 Ordered:17-Apr-2015 Immunization Name Dates Details Tdap (Adacel) Lot #: [id number] Administered on:28-Apr-2013 Prevnar 13 Intramuscular Suspension Administered on:28-Apr-2013 Zoster (Zostavax) Lot #: [id number] Administered on:05-Jun-2014 Family History Unknown Family Member* Name Dates Details Family history of Mother At Age ____ Comments: Family History Status: Active Family history of Father At Age ____ Comments: Family History Status: Active Father* Name Dates Details Family history of Gastric Cancer (V16.0) Status: Active Social History Name Dates Details Smoking Status* Never smoker Vital Signs Date Test Result Details 17-Apr-2015 09:14 BP Systolic 136 mm[Hg] Status: BP Diastolic 80 mm[Hg] Status: Temperature 97.4 f Status: Heart Rate 80 /min Status: Respiration Rate 12 /min Status: Height 70 in Status: Weight 181 lb Status: Body Mass Index Calculated 25.97 kg/m2 Status: Body Surface Area Calculated 2 m2 Status: Results Date Description Value Details 17-Apr-2015 09:02 Urinalysis, Chemistries Only ([facility] only) 8017 pH 6.5 (Better) Range: 5.0-7.5 [...]
--- OUTSIDE RECORDS SUMMARY | 2016-08-05 10:58 | XMS REPORT | Summary of Care ---
Author Author Michael Albarado M.D. 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 Medications Name Dates Details Medication not documented Allergies and Adverse Reactions Name Dates Details No Known Drug Allergies Status: Active Procedures Procedure Dates Details History of Complete Colonoscopy Completed:12-Jul-2009 CBC w/ Auto Diff 7150 Ordered:10-May-2014 Comprehensive Metabolic Panel 1212 Ordered:10-May-2014 PSA ( PROSTATE SPECIFIC ANTIGEN) 3100 Ordered:10-May-2014 Immunization Name Dates Details Tdap (Adacel) Lot #: [id number] Administered on:28-Apr-2013 Prevnar 13 Intramuscular Suspension Administered [...] Planned Encounters* Appointment; Provider: Michael Albarado On 19-May-2014 14:15 Instructions * Instructions not documented Encounters Appointment; Carlos Hart Encounter Diagnosis: Problem not [...]
--- OUTSIDE RECORDS SUMMARY | 2016-08-05 10:58 | XMS REPORT | Summary of Care ---
Author Author Michael Albarado M.D. 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.] to report Results Date Description Value Details 17-Jun-2016 08:04 [...] >60 ml/min Range: >60 EST GFR, NON-AFR CITIZEN OF [place] >60 ml/min Range: >60 Comments: EST GFR [...] Encounters Appointment; Provider: Michael Albarado M.D. On 17-Jun-2016 14:00 Instructions Name Dates Details Instructions not documented Encounters Appointment; Shar Hinojosa M.D. Encounter Diagnosis: Problem not documented On 06-Nov-2015 15:00 Appointment; Michael Albarado M.D. Encounter Diagnosis: Problem not documented On 06-Jun-2015 16:00 Appointment; Edwin Richards M.D. Encounter Diagnosis: Problem not documented On 17-Apr-2015 09:30
--- OUTSIDE RECORDS SUMMARY | 2016-08-05 10:58 | XMS REPORT | Summary of Care ---
Author Author Michael Albarado M.D. 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
[2016-08-05 12:12] LABS: BASOPHILS % (AUTO) 0.4 % (0-2); EOSINOPHILS # (AUTO) 0.1 T/MM3 (0-0.5); EOSINOPHILS % (AUTO) 0.5 % (0-4); HCT - HEMATOCRIT 47.5 % (41-53); HGB - HEMOGLOBIN 16.3 GM/DL (13.5-17.5); IMMATURE GRANULOCYTE # (AUTO) 0.01 T/MM3 (0.00-0.03); IMMATURE GRANULOCYTE % (AUTO) 0.1 % (0.0-0.5); LYMPHOCYTES # (AUTO) 1.9 T/MM3 (1-4.8); LYMPHOCYTES % (AUTO) 17.8 % (23-45); MEAN CORPUSCULAR HGB 29.3 UUG (26-34); MEAN CORPUSCULAR HGB CONC(MCHC 34.3 GM/DL (31-37); MEAN CORPUSCULAR VOLUME 85.3 UM3 (80-100); MEAN PLATELET VOLUME 11.5 UM3 (9.4-12.4); MONOCYTES # (AUTO) 0.8 T/MM3 (0-0.8); MONOCYTES % (AUTO) 7.5 % (0-9.0); NEUTROPHILS % (AUTO) 73.7 % (33-66); RED BLOOD COUNT 5.57 M/MM3 (4.50-5.90); WBC - WHITE BLOOD COUNT 10.8 T/MM3 (4.5-11.0)
[2016-08-05 12:20] LABS: ANION GAP 14 MEQ/L (5-15); BUN/CREATININE RATIO 15 RATIO (6-26); CALCIUM 9.9 MG/DL (8.4-10.2); CHLORIDE 105 MEQ/L (98-107); CO2 - CARBON DIOXIDE 27 MEQ/L (22-30); GLOMERULAR FILTRATION RATE 75; GLUCOSE 130 MG/DL (75-110); POTASSIUM 3.8 MEQ/L (3.6-5); SODIUM 146 MEQ/L (134-144)
[2016-08-05] MEDS ORDERED: MIDAZOLAM 2mg/2ml INJECTION ONE (13:19)
[2016-08-05] MEDS ORDERED: PROPOFOL 500mg 50 ML IV ONE (13:19)
[2016-08-05] MEDS ORDERED: IOHEXOL 300 MG/ML 50ml INJECTION ONE (13:40)
[2016-08-05] MEDS ORDERED: GENTAMICIN 80 MG/2 ML INJECTION ONE (13:40)
--- NOTE | 2016-08-05 13:43 | ANESPREOP ---
Anesthesia Record Date and Time DATE: 08/05/16 TIME: 1334 Proposed Surgical Procedure CYSTOSCOPY, L. RETROGRADE, LASER LITHO. Allergies: Coded Allergies: No Known Allergies (Unverified , 08/05/16) Ht/Wt/BMI Height: 5 ' 10.00 " Weight: 81.100 kg BMI: 25.7 kg/m2 Vital Signs Date Time Temp Pulse Resp B/P Pulse Ox O2 Delivery O2 Flow Rate FiO2 08/05/16 11:46 94 141/67 08/05/16 11:16 98.3 14 99 Room Air Medications Inpatient Medications Current Medications Medications (Trade) Dose Ordered Sig/[place] Start Time Stop Time Status Last Admin Dose Admin Lactated Ringer's (Lactated Ringers) 1,000 ml @ 100 mls/hr Q10H 08/05/16 07:00 No Active Prescriptions or Reported Meds Currently on Beta Nixon: No Medical/Surgical History Anesthesia PMH: Denies: Anesthesia Reactions (NO AIRWAY ISSUES), Cancer, Glaucoma, Malignant Hyperthermia, Renal Disease, Sleep Apnea Smoking Status: Never smoker Use Chewing Tobacco?: No Substance Use Type: does not use Alcohol Intake: none Past Surgical History Orthopedic Surgeries: Abdominal Surgeries: Genitourinary Surgeries: Cardiac Surgeries: Endocrine Surgeries: Reproductive Surgeries: Neurological Surgeries: Ear Surgeries: Nose Surgeries: Throat Surgeries: Other Surgeries: Yes - COLONOSCOPY Anesthesia Adverse Reactions: FOUND none Family Hx of Anesthesia Advers: none Hx of Motion Sickness: No Pertinent Findings Laboratory Tests 08/05/16 11:29 Physical Exam Respiratory: Lungs clear Cardiovascular: FOUND Regular rate, rhythm Airway Assessment Mallampati Score: II TMD: 3 Fingerbreadths Neck Extension: Good Overall Assessment: No Airway Concerns ASA: 2 Discussion Discussed risks/options/alternatives of anesthesia and questions answered. Patient consents. Nursing pain assessment noted. Present: Spouse Attestation Statement Prior to the delivery of any anesthetic medication, I examined the patient, developed the plan, obtained the patient's consent and discussed the risk and benefits of the procedure with the patient/guardian. ELEANOR PHAM CRNA August 05, 2016 13:43
[2016-08-05] MEDS ORDERED: FENTANYL 100mcg/2ml INJECTION ONE ×2 (14:02→14:33)
[2016-08-05] MEDS ORDERED: PROPOFOL 200mg 20 ML IV ONE ×2 (14:17→14:30)
[2016-08-05] MEDS ORDERED: LR 1,000 ML IV SCH (15:23)
[2016-08-05] MEDS ORDERED: KETOROLAC 30mg/ml INJECTION IV PRN (15:30)
[2016-08-05] MEDS ORDERED: ONDANSETRON 4mg/2ml INJECTION IV PRN (15:30)
[2016-08-05] MEDS ORDERED: HYOSCYAMINE 0.125 MG SUBLINGUAL TABLET SL PRN (15:30)
[2016-08-05] MEDS ORDERED: MORPHINE SULFATE 4 MG SYRINGE IV PRN (15:30)
[2016-08-05] MEDS ORDERED: HYDROCODONE/APAP 5 mg/325 mg TABLET PO PRN (15:30)
[2016-08-05] MEDS ORDERED: PHENAZOPYRIDINE 95 MG TABLET PO PRN (15:30)
[2016-08-05] MEDS ORDERED: HYOS-7 SL (15:37)
[2016-08-05] MEDS ORDERED: NITR100C4 PO (15:37)
[2016-08-05] MEDS ORDERED: PHEN95TA25 PO (15:37)
[2016-08-05] MEDS ORDERED: HYDR-4246 PO (15:37)
--- NOTE | 2016-08-05 15:55 | DI ---
Indication: ITS.REASON: LEFT RETROGRADE, LEFT STONE REMOVAL, LEFT STENT INSERTION PROCEDURE: RF RETROGRADE PYELOGRAM LEFT: Encounter: Initial Comparison: None Findings: 14 fluoroscopic spot images are submitted for interpretation. Images show a left-sided double-J stent in place. Retrograde injection of contrast into the left ureter via a cystoscope was performed. Guidewire is then seen advanced through the left ureter. Angioplasty balloon is deployed at the left ureterovesicular junction. Left-sided calyces are only partially opacified. Impression: Fluoroscopy as above. Please refer to the dictated procedural note for further details. Fluoroscopy time is 309 seconds. Fluoroscopy dose is 6890 mRad. .
--- NOTE | 2016-08-05 15:57 | ANESPO ---
Post-Op Note Date 08/05/16 Time: 15:57 Status Pt Participated in Evaluation: Pt participated in person Vital Signs Date Time Temp Pulse Resp B/P Pulse Ox O2 Delivery O2 Flow Rate FiO2 08/05/16 15:45 71 20 123/70 98 Room Air 08/05/16 15:30 4.00 08/05/16 15:17 97.1 Respiratory Function: Airway patent, Regular respirations Cardiovascular Function: Regular pulse Mental Status: Alert/oriented Pain Level Intensity: 1 Hydration: Taking po fluids, IV infusing Complications during Recovery None apparent Follow-Up Instructions Instructions Per Surgeon PALOMO BARRAGAN CRNA August 05, 2016 15:57
--- NOTE | 2016-08-06 12:11 | OPNOTEF ---
DATE OF OPERATION 08/05/2016 PREOPERATIVE DIAGNOSIS Left ureteral stone. POSTOPERATIVE DIAGNOSIS Left ureteral stone and ureteral stricture. OPERATION PERFORMED Cystoscopy with ureteroscopic holmium laser lithotripsy and ureteroscopic stone basket and ureteroscopy and ureteral stricture dilation. Cystoscopy and stent insertion. Cystoscopy with retrograde pyelogram and under fluoroscopy. SURGEON Wilfred Mejia MD ANESTHESIA General TIVA INDICATION Mr. Pinto is a 65-year-old man with symptomatic left proximal ureteral stone. Patient was in the emergency room for pain control. Patient's symptoms have improved but it was thought that likelihood of spontaneous passage of stone was very small due to lack of progression of the stone. DESCRIPTION OF PROCEDURE Patient was taken to the cystoscopy suite and under intravenous anesthesia, she was placed in the dorsal lithotomy position and prepped and draped in the usual fashion for cystoscopic procedure. Fluoroscopically the entire abdomen was scanned and did not find obvious stone. A #21 [place] cystoscope was inserted into the bladder under direct vision without difficulty. Bladder shows moderate trabeculation but no bladder tumor, foreign body or stone. Ureteral orifices are normal in location and contour but left ureteral opening was rather small. Bladder outlet is mildly obstructing from small prostate gland and no urethral stricture is found. Retrograde pyelogram on the left side was performed using #5 [place] open-ended ureteral catheter under fluoroscopy. This shows filling defect in the proximal ureter where stone was seen on the CT scan. A guidewire was then placed into the left renal system under fluoroscopic guidance. We attempted to advance the ureteroscope over the guidewire but we could not do so due to a very narrow ureteral opening. Therefore, ureteral opening and distal ureter was dilated to #15 [place] with a balloon dilator. This allowed the insertion of the ureteral access sheath #14 [place] in outer diameter and #12 [place] inner diameter and 35 cm in length. Sheath was advanced to the proximal mid ureter under fluoroscopy. Guidewire was left in and high definition #7 [place] flexible ureteroscope was fed over the guidewire and inserted into the access sheath and into the ureter. Approximately an inch above the access sheath was a very narrow ureter and unable to pass the ureteroscope. Therefore the ureteroscope was removed and a #12 [place] balloon dilator was loaded over the guidewire and the narrow portion of the ureter and the proximal ureter was dilated under fluoroscopy at low pressure, approximately 6 atmospheric pressure, in very slow incremental distention. The balloon dilator was then removed and we were able to insert the flexible high definition ureteroscope over the guidewire and advance into the proximal ureter. No stone was visualized in the proximal ureter and stone had been flushed up into the kidney. Contrast injected into the renal pelvis showed filling defect in the lower pole calyx. The ureteroscope was directed to the calyx and stone was visualized. This was a very irregular-shaped with a sharp edge, stone, and stone was fragmented successfully using 376 micron holmium laser fiber at 8 estrella. The larger part of this fragment was then retrieved successfully with a 1.8 [place] Olympus basket. Two fragments were removed this way. The rest of the fragments were too small to be engaged into the basket. Despite multiple attempts, we were not able to remove all fragments due to its size. Therefore, a guidewire was left in the renal pelvis and the ureteroscope backed out along with the access sheath. Cystoscope was back-loaded over the guidewire and a #6 [place] x 26 cm double pigtail stent was placed into the left renal system. Stent position was confirmed fluoroscopically and cystoscopically. String attached to the distal end of the ureteral stent was trimmed at the meatus. Patient tolerated the procedure well and was taken to the recovery room in stable condition. CHARLY
== END 2016-08-05 16:55 | disposition home or self-care (01) ==
LOC: SCU 10:51
PROVIDERS: ATTEND Specialist
DX: N20.2 Calculus of kidney with calculus of ureter (principal); N13.5 Crossing vessel and stricture of ureter without hydronephrosis; N32.0 Bladder-neck obstruction; N32.89 Other specified disorders of bladder; E78.5 Hyperlipidemia, unspecified
CPT/HCPCS: 36415; 52356; 74420; 80048; 82365; 85025; C2617; J1580; J1885; J1956; J2250; J2704; J3010; J7060; J7120; Q9967